=== PATIENT | female | born 2000 | race Caucasian/White ===

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

== ENCOUNTER 2022-03-18 15:40 | Observation (INO) | payer MEDICAID ==
[2022-03-18] MEDS ORDERED: D5W/LACTATED RINGERS 1,000 ML IV ONE (18:15)
[2022-03-18 18:17] LABS: Urine Bacteria FEW /hpf (None Seen); Urine Blood Negative /uL (Negative); Urine Mucus FEW (None Seen); Urine Specific Gravity 1.018 (1.001-1.035); Urine WBC 22 /hpf (0 - 5)
[2022-03-18] MEDS ORDERED: ceFAZolin 2 GM in D5W 5% 100 ML IV ONE (19:00)
== END 2022-03-18 21:22 | disposition home or self-care (01) ==
LOC: LDRP 15:40
PROVIDERS: ADMIT Obstetrics & Gynecology; ATTEND Obstetrics & Gynecology
DX: O21.2 Late vomiting of pregnancy (principal); Z20.822 Contact with and (suspected) exposure to COVID-19; O23.43 Unspecified infection of urinary tract in pregnancy, third trimester; N39.0 Urinary tract infection, site not specified; O26.893 Other specified pregnancy related conditions, third trimester; R42 Dizziness and giddiness; R51.9 Headache, unspecified; Z3A.36 36 weeks gestation of pregnancy
CPT/HCPCS: 36415; 59025; 81001; 81002; 87086; 87426; 94760; 96361; 96365; G0378; J0690; J7060; 96360

== ENCOUNTER 2022-04-08 21:15 | Observation (INO) | payer MEDICAID ==
[~2022-04-08] VITALS: Ht 170.2 cm; Wt 150.1 kg
[2022-04-08 22:33] LABS: Basophils # (auto) 0.1 10 ^3/uL (0-0.2); Eosinophils # (auto) 0.1 10 ^3/uL (0-0.8); Eosinophils % (auto) 0.6 % (0.0-7.0); Hematocrit 32.8 % (36.0-46.0); Hemoglobin 10.9 g/dL (12.2-16.2); Lymphocytes # (auto) 2.2 10 ^3/uL (0.4-5.4); Lymphocytes % (auto) 19.6 % (10.0-50.0); Mean Corpuscular Hemoglobin 24.1 pg (28.0-32.0); Mean Corpuscular Hgb Conc. 33.1 g/dL (32.0-36.0); Mean Corpuscular Volume 72.8 fL (80.0-100.0); Monocytes # (auto) 0.9 10 ^3/uL (0-1.3); Monocytes % (auto) 7.6 % (0.0-12.0); Neutrophils # (auto) 7.9 10 ^3/uL (1.6-8.6); Neutrophils % (auto) 71.2 % (37.0-80.0); Nucleated Red Blood Cells % 0.1 %; Red Blood Cells 4.51 10^6/uL (4.0-5.20); Red Cell Distribution Width 16.5 % (11.8-14.3); White Blood Cell 11.2 10^3/uL (4.4-10.8)
[2022-04-08 22:40] LABS: Urine Bacteria NONE SEEN /hpf (None Seen); Urine Blood Negative /uL (Negative); Urine Specific Gravity 1.021 (1.001-1.035); Urine WBC 21 /hpf (0 - 5)
[2022-04-08 22:51] LABS: Albumin 2.4 g/dL (3.4-5.0); Calcium 8.5 mg/dL (8.5-10.1); Potassium 3.8 mmol/L (3.5-5.1)
[2022-04-08 22:55] LABS: BUN/Creatinine Ratio 15.6; Bilirubin, Total 0.2 mg/dL (0.2-1.0); Uric Acid 4.1 mg/dL (2.6-6.0)
[2022-04-08 23:00] LABS: INR 0.93 (0.9-1.15)
[2022-04-08 23:28] LABS: Protein, Urine 22.3 mg/dL (0.0-11.9)
== END 2022-04-08 23:50 | disposition home or self-care (01) ==
LOC: LDRP 21:15
PROVIDERS: ADMIT Obstetrics & Gynecology; ATTEND Obstetrics & Gynecology
DX: O13.3 Gestational [pregnancy-induced] hypertension without significant proteinuria, third trimester (principal); Z3A.39 39 weeks gestation of pregnancy
CPT/HCPCS: 36415; 59025; 76818; 80053; 81001; 81002; 82570; 84156; 84550; 85025; 85362; 85379; 85610; 85730; 94760; G0378

== ENCOUNTER 2022-04-10 09:32 | Observation (INO) | payer MEDICAID | END 2022-04-10 12:07 | disposition home or self-care (01) | LOC: LDRP 09:32 → UNDODISOB 11:15 | PROVIDERS: ADMIT Obstetrics & Gynecology; ATTEND Obstetrics & Gynecology | DX: O26.893 Other specified pregnancy related conditions, third trimester (principal); R03.0 Elevated blood-pressure reading, without diagnosis of hypertension; O60.03 Preterm labor without delivery, third trimester; Z3A.39 39 weeks gestation of pregnancy | CPT/HCPCS: 59025; 76818; 81002; 94760; G0378 ==

== ENCOUNTER 2022-04-13 13:00 | Observation (INO) | payer MEDICAID | END 2022-04-13 15:22 | disposition home or self-care (01) | LOC: LDRP 13:00 | PROVIDERS: ADMIT Obstetrics & Gynecology; ATTEND Obstetrics & Gynecology | DX: O48.0 Post-term pregnancy (principal); Z3A.40 40 weeks gestation of pregnancy | CPT/HCPCS: 59025; 76818; 81002; G0378 ==

== ENCOUNTER 2022-04-15 14:06 | Observation (INO) | payer MEDICAID | END 2022-04-15 16:50 | disposition home or self-care (01) | LOC: LDRP 14:06 | PROVIDERS: ADMIT Obstetrics & Gynecology; ATTEND Obstetrics & Gynecology | DX: O48.0 Post-term pregnancy (principal); Z3A.40 40 weeks gestation of pregnancy | CPT/HCPCS: 59025; 76818; 81002; 94760; G0378 ==

== ENCOUNTER 2022-04-17 11:29 | Observation (INO) | payer MEDICAID ==
[~2022-04-17] VITALS: Ht 170.2 cm; Wt 150.1 kg
[2022-04-18] MEDS ORDERED: PREN-96 PO (07:58)
== END 2022-04-17 13:51 | disposition home or self-care (01) ==
LOC: LDRP 11:29
PROVIDERS: ADMIT Obstetrics & Gynecology; ATTEND Obstetrics & Gynecology
DX: O62.9 Abnormality of forces of labor, unspecified (principal); O48.0 Post-term pregnancy; O21.2 Late vomiting of pregnancy; Z3A.40 40 weeks gestation of pregnancy
CPT/HCPCS: 59025; 76818; 81002; 94760; G0378

== ENCOUNTER 2022-04-18 07:15 | Inpatient (IN) | payer MEDICAID ==
[~2022-04-18] VITALS: Ht 170.2 cm; Wt 150.2 kg
[2022-04-18] MEDS ORDERED: PREN-96 PO (07:58)
[2022-04-18] MEDS ORDERED: LIDOCAINE 2%HCL (LOCAL ANESTH.) INJ 10ml MDV IJ PRN (08:00)
[2022-04-18] MEDS ORDERED: BUTORPHANOL TARTRATE 2 MG/1 ML VIAL IV PRN ×2 (08:00)
[2022-04-18] MEDS ORDERED: WITCH HAZEL-GLYCERIN PAD TOP PRN (08:00)
[2022-04-18] MEDS ORDERED: PHISODERM TOP SOLN 240ML BTL TOP PRN (08:00)
[2022-04-18] MEDS ORDERED: PROMETHAZINE HCL 25 MG/ML 1ML IV PRN (08:00)
[2022-04-18] MEDS ORDERED: DERMOPLAST 60ML BOTTLE TOP PRN (08:00)
[2022-04-18] MEDS: LACTATED RINGER'S 1,000 ML IV SCH ×3 (08:37→23:27)
[2022-04-18 09:13] LABS: Basophils # (auto) 0.1 10 ^3/uL (0-0.2); Hemoglobin 10.3 g/dL (12.2-16.2); Monocytes # (auto) 0.6 10 ^3/uL (0-1.3); White Blood Cell 11.2 10^3/uL (4.4-10.8)
[2022-04-18 09:14] LABS: Basophils % (auto) 0.6 % (0.0-2.0); Eosinophils # (auto) 0 10 ^3/uL (0-0.8); Eosinophils % (auto) 0.4 % (0.0-7.0); Lymphocytes # (auto) 1.9 10 ^3/uL (0.4-5.4); Lymphocytes % (auto) 17.1 % (10.0-50.0); Mean Corpuscular Hemoglobin 23.9 pg (28.0-32.0); Mean Corpuscular Hgb Conc. 33.2 g/dL (32.0-36.0); Mean Corpuscular Volume 71.8 fL (80.0-100.0); Monocytes % (auto) 5.1 % (0.0-12.0); Neutrophils # (auto) 8.6 10 ^3/uL (1.6-8.6); Neutrophils % (auto) 76.8 % (37.0-80.0); Nucleated Red Blood Cells % 0.1 %; Red Blood Cells 4.32 10^6/uL (4.0-5.20); Red Cell Distribution Width 17.2 % (11.8-14.3)
[2022-04-18 09:19] LABS: Urine Bacteria NONE SEEN /hpf (None Seen); Urine Blood Negative /uL (Negative); Urine Specific Gravity 1.011 (1.001-1.035); Urine WBC 39 /hpf (0 - 5)
[2022-04-18 09:21] LABS: Albumin 2.3 g/dL (3.4-5.0); Calcium 8.4 mg/dL (8.5-10.1); Potassium 3.4 mmol/L (3.5-5.1)
[2022-04-18 09:25] LABS: BUN/Creatinine Ratio 11.1; Bilirubin, Total 0.4 mg/dL (0.2-1.0); Total Protein 6.3 g/dL (6.4-8.2)
[2022-04-18 09:28] LABS: Amphetamine Screen, Urine NEGATIVE (NEGATIVE); Barbiturate Scree,Urine NEGATIVE (NEGATIVE); Benzodiazephine Screen, Urine NEGATIVE (NEGATIVE); Cannabinoid Screen, Urine NEGATIVE (NEGATIVE); Cocaine Screen, Urine NEGATIVE (NEGATIVE); Opiate Scree,Urine NEGATIVE (NEGATIVE); Phencyclidine Screen, Urine NEGATIVE (NEGATIVE)
[2022-04-18 09:28] LABS: INR 0.94 (0.9-1.15); Partial Thromboplastin Time 26.6 sec (23.6-33.0)
[2022-04-18] MEDS: miSOPROStol 50 MCG per PRE-CUT 1/2 TAB PO PRN ×4 (09:58→22:36)
[2022-04-18] MEDS ORDERED: POTASSIUM CHL 20 Meq TABLET PO ONE (11:00)
[2022-04-19] MEDS: miSOPROStol 50 MCG per PRE-CUT 1/2 TAB PO PRN (02:53)
[2022-04-19] MEDS: LACTATED RINGER'S 1,000 ML IV SCH ×2 (10:02→14:46)
[2022-04-19] MEDS ORDERED: TERBUTALINE SULFATE 1 MG/ML 1ML VIAL SC PRN (13:15)
[2022-04-19] MEDS ORDERED: LACT. RINGERS/OXYTOCIN 20UNITS 500 ML IV ONE ×2 (13:15→13:45)
[2022-04-19] MEDS ORDERED: LACT. RINGERS/OXYTOCIN 20UNITS 1,000 ML IV SCH (13:15)
[2022-04-19] MEDS ORDERED: fentaNYL CITRATE 100 MCG/2 ML VL IV ONE (19:00)
[2022-04-19] MEDS ORDERED: ROPIVACAINE HCL 200 ML EPI SCH ×2 (19:00→20:00)
[2022-04-19] MEDS ORDERED: LIDOCAINE HCL 2 %PF INJ 10ML AMP IJ ONE (19:00)
[2022-04-19] MEDS ORDERED: LACTATED RINGER'S 1,000 ML IV ONE (19:00)
[2022-04-19] MEDS ORDERED: ePHEDrine SULFATE 50 MG/ML AMP IV ONE (19:00)
[2022-04-19] MEDS ORDERED: NALOXONE HCL 0.4 MG/ML VIAL IV ONE (19:00)
[2022-04-19] MEDS ORDERED: LORazepam 2MG/ML-1ML VIAL IV ONE (20:00)
[2022-04-19] MEDS ORDERED: MAGNESIUM SULFATE 100 ML IV ONE (20:15)
[2022-04-19] MEDS ORDERED: MAGNESIUM SULFATE 40MG/ML 1,000 ML IV SCH (20:15)
[2022-04-19] MEDS ORDERED: GENTAMICIN PER PHARMACY 0 ML IV SCH (20:15)
[2022-04-19] MEDS ORDERED: AMPICILLIN SOD 2GM INJ 2 GM in SODIUM CHL 0.9% 100 ML IV SCH (20:30)
[2022-04-19] MEDS ORDERED: ACETAMINOPHEN 325 MG TAB PO ONE (21:45)
[2022-04-19] MEDS ORDERED: GENTAMICIN SULFATE IV SCH ×4 (21:45)
[2022-04-19] MEDS ORDERED: SODIUM CHL 0.9% IV SCH ×4 (21:45)
[2022-04-19] MEDS ORDERED: SODIUM CHLORIDE 0.9% 300 ML IUPC ONE (22:00)
[2022-04-19] MEDS ORDERED: SODIUM CHLORIDE 0.9% 1,000 ML IUPC SCH (22:00)
[2022-04-19 22:29] LABS: Basophils # (auto) 0.1 10 ^3/uL (0-0.2); Basophils % (auto) 0.3 % (0.0-2.0); Eosinophils # (auto) 0 10 ^3/uL (0-0.8); Hematocrit 34.1 % (36.0-46.0); Hemoglobin 11.2 g/dL (12.2-16.2); Lymphocytes # (auto) 0.7 10 ^3/uL (0.4-5.4); Mean Corpuscular Hemoglobin 23.2 pg (28.0-32.0); Mean Corpuscular Hgb Conc. 32.8 g/dL (32.0-36.0); Mean Corpuscular Volume 70.8 fL (80.0-100.0); Monocytes % (auto) 4.3 % (0.0-12.0); Neutrophils # (auto) 20.5 10 ^3/uL (1.6-8.6); Neutrophils % (auto) 92.4 % (37.0-80.0); Red Blood Cells 4.83 10^6/uL (4.0-5.20); Red Cell Distribution Width 17.4 % (11.8-14.3); White Blood Cell 22.2 10^3/uL (4.4-10.8)
[2022-04-19 22:44] LABS: INR 0.94 (0.9-1.15); Partial Thromboplastin Time 26.9 sec (23.6-33.0)
[2022-04-19] MEDS ORDERED: LABETALOL HCL 5 MG/ML 4ML SYRINGE IV PRN (22:45)
[2022-04-19] MEDS ORDERED: LABETALOL HCL 5 MG/ML 4ML SYRINGE IV ONE (22:49)
[2022-04-19 22:57] LABS: Calcium 8.8 mg/dL (8.5-10.1); Potassium 3.4 mmol/L (3.5-5.1)
[2022-04-19 23:03] LABS: Albumin 2.5 g/dL (3.4-5.0); Bilirubin, Total 0.5 mg/dL (0.2-1.0); Total Protein 7.4 g/dL (6.4-8.2)
[2022-04-20] VITALS (13 sets, daily range): BP systolic 95–127; BP diastolic 51–68
[2022-04-20 00:55] LABS: Protein, Urine 221.7 mg/dL (0.0-11.9)
[2022-04-20] MEDS ORDERED: miSOPROStol 100 mcg TAB ONE (01:38)
[2022-04-20] MEDS ORDERED: TRANEXAMIC ACID 1,000 MG in SODIUM CHL 0.9% 100 ML IV ONE (02:00)
[2022-04-20] MEDS ORDERED: miSOPROStol 100 mcg TAB PO PRN (02:00)
[2022-04-20] MEDS ORDERED: ONDANSETRON ODT 4 MG TAB PO PRN (02:30)
[2022-04-20] MEDS ORDERED: ACETAMINOPHEN 325 MG TAB PO PRN (02:30)
[2022-04-20 02:33] LABS: Hemoglobin 10.2 g/dL (12.2-16.2)
[2022-04-20 02:35] LABS: Hematocrit 32.1 % (36.0-46.0); Mean Corpuscular Hemoglobin 23.3 pg (28.0-32.0); Mean Corpuscular Hgb Conc. 31.7 g/dL (32.0-36.0); Mean Corpuscular Volume 73.4 fL (80.0-100.0); Red Blood Cells 4.38 10^6/uL (4.0-5.20); Red Cell Distribution Width 17.3 % (11.8-14.3); White Blood Cell 29.4 10^3/uL (4.4-10.8)
[2022-04-20 02:41] LABS: Basophils % (manual) 0 (0.0-2.0); Blast Cells 0; Eosinophils % (manual) 0 (0-7); Metamyelocytes % 0; Myelocytes % 0; Promyelocytes % 0; Reactive Lymphocytes 0
[2022-04-20 04:16] LABS: Band Neutrophils % (manual) 20; Lymphocytes % (manual) 4 (10.0-50.0); Monocytes % (manual) 3 (0-12)
[2022-04-20] MEDS: IBUPROFEN 800 MG TAB PO SCH ×4 (04:27→18:38)
[2022-04-20] MEDS ORDERED: LACTATED RINGER'S 1,000 ML IV SCH (04:45)
[2022-04-20] MEDS: AMPICILLIN SOD 2GM INJ 2 GM in SODIUM CHL 0.9% 100 ML IV SCH ×4 (04:58→22:55)
[2022-04-20] MEDS ORDERED: LORazepam 2MG/ML-1ML VIAL IV PRN (05:15)
[2022-04-20 06:07] LABS: RPR Non Reactive (Non Reactive)
[2022-04-20 07:23] LABS: Basophils # (auto) 0 10 ^3/uL (0-0.2); Basophils % (auto) 0.2 % (0.0-2.0); Eosinophils # (auto) 0 10 ^3/uL (0-0.8); Hematocrit 25.6 % (36.0-46.0); Hemoglobin 8.3 g/dL (12.2-16.2); Lymphocytes # (auto) 1.3 10 ^3/uL (0.4-5.4); Lymphocytes % (auto) 5.3 % (10.0-50.0); Mean Corpuscular Hemoglobin 23.6 pg (28.0-32.0); Mean Corpuscular Hgb Conc. 32.6 g/dL (32.0-36.0); Mean Corpuscular Volume 72.3 fL (80.0-100.0); Monocytes # (auto) 1.6 10 ^3/uL (0-1.3); Monocytes % (auto) 6.5 % (0.0-12.0); Neutrophils # (auto) 21.4 10 ^3/uL (1.6-8.6); Red Blood Cells 3.54 10^6/uL (4.0-5.20); White Blood Cell 24.4 10^3/uL (4.4-10.8)
[2022-04-20] MEDS: FERROUS SULFATE 325mg EC TAB PO SCH ×2 (08:44→18:37)
[2022-04-20 10:08] LABS: Potassium 3.6 mmol/L (3.5-5.1)
[2022-04-20 10:20] LABS: BUN/Creatinine Ratio 9.2; Bilirubin, Total 0.6 mg/dL (0.2-1.0); Total Protein 5.4 g/dL (6.4-8.2)
[2022-04-20] MEDS ORDERED: DOCUSATE SOD 100 MG CAP PO SCH (22:00)
[2022-04-21 03:00] VITALS: BP 104/53
[2022-04-21] MEDS: AMPICILLIN SOD 2GM INJ 2 GM in SODIUM CHL 0.9% 100 ML IV SCH ×2 (05:38→11:36)
[2022-04-21] MEDS: IBUPROFEN 800 MG TAB PO SCH ×3 (06:00→12:00)
[2022-04-21 06:34] VITALS: BP 113/53
[2022-04-21 11:30] VITALS: BP 117/59
[2022-04-21] MEDS: FERROUS SULFATE 325mg EC TAB PO SCH (11:36)
[2022-04-21 15:30] VITALS: BP 125/60
== END 2022-04-21 16:10 | disposition home or self-care (01) | DRG 560 ==
LOC: OBSVTOIN 07:15 → LDRP 07:15
PROVIDERS: ADMIT Obstetrics & Gynecology; ATTEND Obstetrics & Gynecology
PROC: 10E0XZZ Delivery of Products of Conception, External Approach (ICD-10-PCS; principal; 2022-04-20)
PROC: 0HQ9XZZ Repair Perineum Skin, External Approach (ICD-10-PCS; 2022-04-20)
PROC: 3E0R3BZ Introduction of Anesthetic Agent into Spinal Canal, Percutaneous Approach (ICD-10-PCS; 2022-04-20)
PROC: 00HU33Z Insertion of Infusion Device into Spinal Canal, Percutaneous Approach (ICD-10-PCS; 2022-04-20)
DX: O48.0 Post-term pregnancy (principal); Z37.0 Single live birth; O72.0 Third-stage hemorrhage; O69.81X0 Labor and delivery complicated by cord around neck, without compression, not applicable or unspecified; Z20.822 Contact with and (suspected) exposure to COVID-19; Z3A.40 40 weeks gestation of pregnancy; O70.0 First degree perineal laceration during delivery; O76 Abnormality in fetal heart rate and rhythm complicating labor and delivery
CPT/HCPCS: 36415; 59025; 59409; 80053; 80307; 81001; 81002; 82570; 83735; 84156; 84550; 85007; 85025; 85027; 85379; 85384; 85610; 85730; 86592; 86850; 86900; 86901; 94760; 94762; 96360; 96361; 96365; 96366; 96374; 96375; G0378; J2001; J2590; J3490